=== PATIENT | female | born 1945 | race Caucasian/White ===

== ENCOUNTER → 2016-02-14 | Outpatient (CLI) | payer MEDICARE ==
[2016-02-14 10:06] LABS: BASOPHILS % (AUTO) 0 % (0-2); EOSINOPHILS # (AUTO) 0.1 10^3uL; EOSINOPHILS % (AUTO) 2 % (0-4); LYMPHOCYTES # (AUTO) 3.1 X10^3; MEAN CORPUSCULAR HEMOGLOBIN 30.4 PG (26.0-34.0); MEAN CORPUSCULAR HGB CONC 34.5 g/dL (31.0-37.0); MEAN CORPUSCULAR VOLUME 88 FL (80-100); MEAN PLATELET VOLUME 9.8 FL (6.0-9.5); MONOCYTES # (AUTO) 0.7 X10^3; MONOCYTES % (AUTO) 9 % (3-11); NEUTROPHILS # (AUTO) 3.9 X10^3; NEUTROPHILS % (AUTO) 50 % (51-67); PLATELET COUNT 272 10^3uL (150-450); WHITE BLOOD COUNT 7.78 10^3uL (4.0-11.0)
[2016-02-14 10:46] LABS: ALBUMIN 4.4 g/dL (3.4-5.0); ANION GAP 14.4 MEQ/L (3-15); CALCULATED IONIZED CALCIUM 4.4 mg/dL (3.8-4.6); TOTAL PROTEIN 7.2 g/dL (6.4-8.5)
== END ==
LOC: LAB 09:53
PROVIDERS: ATTEND Internal Medicine
DX: Z00.00 Encounter for general adult medical examination without abnormal findings (principal); E78.4 Other hyperlipidemia; Z98.890 Other specified postprocedural states; I10 Essential (primary) hypertension; K21.9 Gastro-esophageal reflux disease without esophagitis
CPT/HCPCS: 36415; 80053; 80061; 84443; 85025

== ENCOUNTER → 2016-02-27 | Outpatient (CLI) | payer MEDICARE ==
--- NOTE | 2016-02-28 09:27 | Diagnostic Imaging Report ---
DIG PETER BILAT SCREEN W CAD Comparison: 02/23/14 and 12/15/2012 Indication: Screening mammography. Technique: Digital screening mammography was obtained with a computer-aided detection (CAD) system. Findings: The breasts are almost entirely fatty. Scattered bilateral benign calcifications are again seen. Asymmetry in the middle left outer quadrant seen on CC view is unchanged from 12/15/2012 exam. No dominant mass, suspicious microcalcifications or architectural distortion to suggest malignancy. Impression: Stable mammogram without evidence of malignancy. Followup screening mammogram in 12 months is recommended. ACR BI-RADS Category 2: Benign findings. Result letter will be mailed to the patient. Note: At least 10% of breast cancer is not imaged by mammography. Dictated by: Dictated on workstation # [id number]
== END ==
LOC: RAD 09:40
PROVIDERS: ATTEND Internal Medicine
DX: Z12.31 Encounter for screening mammogram for malignant neoplasm of breast (principal)

== ENCOUNTER → 2016-06-13 | Outpatient (CLI) | payer MEDICARE ==
--- NOTE | 2016-06-13 19:52 | Diagnostic Imaging Report ---
INDICATION: Right knee pain. AP, oblique, and lateral views of the right knee are obtained. FINDINGS: No acute bony abnormality is seen. There is no fracture or lytic or blastic lesion. There is medial and lateral joint space narrowing with osteophyte formation. There is patellofemoral spurring. IMPRESSION: Tricompartmental osteoarthritic change of the right knee. No acute bony abnormality. Dictated by: Dictated on workstation # [id number]
== END ==
LOC: RAD 14:41
PROVIDERS: ATTEND Internal Medicine
DX: M25.561 Pain in right knee (principal); M17.11 Unilateral primary osteoarthritis, right knee
CPT/HCPCS: 73562

== ENCOUNTER → 2016-06-14 | Outpatient (CLI) | payer MEDICARE | LOC: LAB 10:04 | PROVIDERS: ATTEND Internal Medicine | DX: E03.8 Other specified hypothyroidism (principal); Z11.59 Encounter for screening for other viral diseases | CPT/HCPCS: 36415; 84443; 86803 ==